=== PATIENT | female | born 1935 | race Caucasian/White ===

== ENCOUNTER 2020-03-11 23:01 | Emergency (ER) | payer MEDICARE, BC, SELFPAY ==
[2020-03-11 23:00] VITALS: BP 153/82; PULSE 106; RESP 18; TEMP 36.6; O2SAT 97
--- NOTE | 2020-03-12 02:47 | ED.FALL ---
HPI - Fall General Chief Complaint: Fall Stated Complaint: Ground Level Fall Time Seen by Provider: 03/12/20 02:35 History of Present Illness HPI Narrative: Patient presents via EMS for scalp lacerations. She was walking in the beck on carpet when she tumbled and hit her head against the hinge on the linen closet door. She is fallen frequently recently, mostly with just bruises. She wears a fall necklace. She has grab bars in the bathroom but not the hallway. She has scattered bruises. She had no loss of consciousness. Blood had been cleaned up from the left side of the head, but the laceration on the right side had not been seen. Not been sick in the last couple weeks. Is been very careful of the COVID precautions. complaint: fall Onset (ago): hour(s) Fall from: standing Fall witnessed: no Place fall occurred: home Loss of consciousness: none Symptoms prior to fall: none Context: tripped/slipped Location of injury: head Related Data Home Medications Medication Instructions Recorded Confirmed alprazolam 0.5 mg tablet 0.5 mg PO TID PRN 08/30/19 aspirin 81 mg tablet,delayed 81 mg PO DAILY 08/30/19 release celecoxib 200 mg capsule 200 mg PO BID 08/30/19 cholecalciferol (vitamin D3) 1,250 50,000 unit PO .COMPLEX 08/30/19 mcg (50,000 unit) capsule losartan 50 mg tablet 50 mg PO DAILY 08/30/19 pioglitazone 15 mg tablet 15 mg PO DAILY 08/30/19 rosuvastatin 10 mg tablet 10 mg PO DAILY 08/30/19 Allergies Allergy/AdvReac Type Severity Reaction Status Date / Time codeine Allergy Unknown DIZZY Verified 10/29/19 15:10 Penicillins Allergy Unknown RASH Verified 10/29/19 15:10 tramadol Allergy Unknown NAUSEA AND Verified 10/29/19 15:10 DIZZY Review of Systems Review of Systems: Narrative: CONSTITUTIONAL: Denies fever, chills, or sweats. EYES: Denies visual changes, redness, or discharge. ENT: Denies rhinorrhea, congestion, sore throat, or otalgia. CARDIOVASCULAR: Denies chest pain, palpitations, or edema. RESPIRATORY: Denies cough or dyspnea. GASTROINTESTINAL: Denies abdominal pain, nausea, vomiting, or diarrhea. GENITOURINARY: Denies dysuria or hematuria. SKIN: Denies rash or itching. MUSCULOSKELETAL: Denies back pain, joint pain, or myalgia. NEUROLOGIC: Denies numbness, or weakness. She has a small headache but wants to take her Tylenol at home. PSYCHIATRIC: Denies anxiety or depression. FOR[facility]LY [facility] Past Medical History Medical History (Updated 03/12/20 @ 02:50 by Pat Wilkes MD) Bronchitis Laceration of scalp Family History Family History Sibling Malignant neoplasm of prostate Mother Family history of malignant neoplasm of ovary Other Cerebrovascular accident Social History Social History Smoking status: Former smoker Second hand tobacco smoke exposure: No Smoking end date: 10/16/94 Alcohol intake: never Gender identity (if verbalized by the patient): Female Exam Narrative: Exam Narrative: GENERAL: Well-appearing, well-nourished, and in no acute distress. Blood on her head. 1 cm scalp plaque on the right, 2 cm scalp plaque on the left. Neither still bleeding. HEAD: Normocephalic, atraumatic. EYES: PERRLA and EOMI. ENT: Nares clear, no rhinorrhea or epistaxis. Mucous membranes moist. NECK: Supple. CHEST: Clear to auscultation. No respiratory distress. HEART: Regular rate and rhythm. No murmur heard. Normal peripheral pulses. ABDOMEN: Soft, nontender, nondistended, normal active bowel sounds. EXTREMITIES: Normal range of motion. No edema. SKIN: Warm, dry, no rash. NEURO: No focal deficits. Alert and oriented x3. PSYCH: Normal mood and affect. Course Vital Signs Vital signs: Vital Signs Temperature 97.8 F 03/11/20 23:00 Pulse Rate 106 H 03/11/20 23:00 Respiratory Rate 18 03/11/20 23:00 Blood Pressure 153/82 H 03/11/20 23:00 Pulse Oximetry 97
[2020-03-12 03:06] VITALS: BP 134/58; PULSE 80; RESP 17; TEMP 36.8; O2SAT 97
== END 2020-03-12 03:10 | disposition home or self-care (01) ==
PROVIDERS: Emergency Provider Emergency Medicine; PCP Internal Medicine
DX: S01.01XA Laceration without foreign body of scalp, initial encounter (principal); Z87.891 Personal history of nicotine dependence; W01.198A Fall on same level from slipping, tripping and stumbling with subsequent striking against other object, initial encounter; Z79.82 Long term (current) use of aspirin
CPT/HCPCS: 12001; 12002; 99282

== ENCOUNTER 2020-08-11 10:43 | Emergency (ER) | payer MEDICARE, BC, SELFPAY ==
[2020-08-11] VITALS (11 sets, daily range): BP systolic 130–149; BP diastolic 64–74; PULSE 69–83; RESP 11–26; O2SAT 84–93
--- NOTE | ~2020-08-11 | XR_ITS ---
EXAMINATION: XR chest 1V portable DATE: 08/11/2020 12:56 INDICATION: Sinus symptoms. TECHNIQUE: A single frontal view of the chest was obtained. COMPARISON: Chest 2 views 08/30/2019, chest CT 09/12/2010 FINDINGS: There is mild atelectasis at left lung base. There is mild scarring at the lung apices. No pleural effusion or pneumothorax. The heart size is normal. There is a prominent left paracardial fat pad. IMPRESSION: 1. Mild atelectasis at left lung base and mild scarring at the lung apices. Reviewed, dictated and finalized at location A.
--- NOTE | 2020-08-11 11:10 | ECG_ITS ---
Measurements Intervals [place] Rate: 73 P: 67 AL: 173 QRS: -4 QRSD: 73 T: 62 QT: 330 QTc: 365 Interpretive Statements SINUS RHYTHM RSR' IN V1 OR V2, CONSIDER RIGHT VENTRICULAR HYPERTROPHY OR RIGHT VCD LOW QRS VOLTAGE IN PRECORDIAL LEADS BORDERLINE R WAVE PROGRESSION, ANTERIOR LEADS BORDERLINE T WAVE ABNORMALITY- ANTEROLAT/HIGH LAT LEADS BASELINE ARTIFACT- I, II, AVR, AVL, AVF, V3, V6 BORDERLINE ECG Electronically Signed On 08-11-2020 12:10:31 CDT by Jeanmarie Dupont D.O.
[2020-08-11 11:30] LABS: Basophils Percent Auto 0.4 % (0.2-1.2); Hematocrit 41.9 % (37.0-47.0); Hemoglobin 13.3 g/dL (12.0-15.0); Immature Granulocyte Absolute 0.01 K/mm3 (0.00-0.031); Immature Granulocyte Percent A 0.4 % (0-0.5); Lymphocytes Absolute Auto 0.37 K/mm3 (0.9-3.2); Lymphocytes Percent Auto 14.5 % (18.3-44.2); Mean Corpuscular HGB Conc 31.7 g/dl (32-36); Mean Corpuscular Hemoglobin 29.9 pg (26-34); Mean Corpuscular Volume 94.2 fl (80-100); Mean Platelet Volume 10.8 fl (7.4-10.4); Monocytes Absolute Auto 0.3 K/mm3 (0.1-0.6); Monocytes Percent Auto 12.5 % (2.6-8.5); Neutrophils Absolute Auto 1.9 K/mm3 (1.3-6.7); Neutrophils Percent Auto 72.2 % (45.5-73.1); Platelet Count Result 114 k/mm3 (150-375); Red Blood Count 4.45 M/mm3 (4.2-5.4); Red Cell Distribution Width 14.1 % (11.5-14.5); White Blood Count 2.6 K/mm3 (4.5-10.0)
[2020-08-11 12:05] LABS: Anion Gap 5 mmol/L (8-16); Blood Urea Nitrogen 18 mg/dL (7-17); Calcium 8.5 mg/dL (8.4-10.2); Carbon Dioxide 32 mmol/L (22-30); Chloride 101 mmol/L (98-107); Estimated CRCL calculation 41 ml/min; Estimated Glomerular Filt Rate 48; Glucose 108 mg/dL (65-105); Potassium 4.5 mmol/L (3.4-5.0); Sodium 138 mmol/L (137-145)
[2020-08-11 12:10] LABS: Base Excess ABG 0.2 mEq/l (+/-2.0); Fractional Inspired Oxygen 21 %; HCO3 ABG 24.3 mEq/l (22.0-26.0); Oxygen Content ABG 17.7 %vol (16.0-22.0); Oxygen Saturation ABG 92.8 % (95.0-100.0); Oxyhemoglobin 91.7 % THb (90.0-100.0); PCO2 ABG 37.9 mmHg (35.0-45.0); PO2 ABG 63.3 mmHg (80.0-100.0); PO2 FiO2 Ratio Arterial Blood 3.01 %; Site Drawn LEFT RADIAL; Total Hemoglobin 13.7 g/dL (12.0-18.0); pH ABG 7.425 (7.350-7.450)
[2020-08-11 12:11] LABS: Device ROOM AIR; Modified Allen's Test Pass
--- NOTE | 2020-08-11 12:34 | PC.NURSE ---
1230 - Patient ambulated with assistance x1. Patient reports increased SOB with exertion and concern for getting around at home due to living alone. O2 saturation remains 92% with ambulation. informed.
--- NOTE | 2020-08-11 12:45 | PC.NURSE ---
1245 - X-ray at bedside. Patient asking if she needs another x-ray due to having one at today. Per MD x-ray at our facility is required. Disc not compatible with our computers. Patient updated.
--- NOTE | 2020-08-11 14:24 | ED.SOB ---
HPI - SOB/Dyspnea General Chief Complaint: Shortness of Breath/Dyspnea Stated Complaint: COVID + SOB Time Seen by Provider: 08/11/20 11:30 Source: patient Mode of arrival: ambulatory Limitations: no limitations History of Present Illness HPI Narrative: 84-year-old female Has COPD type 2 diabetes and hypertension Since last week has had fatigue and a cough and some diarrhea She was seen at a out of network urgent care earlier today and reports a Covid test done there was positive Her additional concerns are that her appetite has been poor and that she lives by herself MD elicited complaint: shortness of breath, cough and anxiety Related Data Home Medications Medication Instructions Recorded Confirmed alprazolam 0.5 mg tablet 0.5 mg PO TID PRN 08/30/19 aspirin 81 mg tablet,delayed 81 mg PO DAILY 08/30/19 release cholecalciferol (vitamin D3) 1,250 50,000 unit PO .COMPLEX 08/30/19 mcg (50,000 unit) capsule Allergies Allergy/AdvReac Type Severity Reaction Status Date / Time codeine Allergy Unknown DIZZY Verified 08/11/20 11:08 Penicillins Allergy Unknown RASH Verified 08/11/20 11:08 tramadol Allergy Unknown NAUSEA AND Verified 08/11/20 11:08 DIZZY Review of Systems Review of Systems: All systems reviewed & are unremarkable except as noted in HPI and below Constitutional: Constitutional: Reports chills, Reports fatigue, Denies fever(s), Denies headache(s) and Reports weakness Eyes: Eyes: Denies change in vision and Denies other visual disturbances ENT: Denies headache(s), Denies epistaxis, Denies nasal congestion and Denies sore throat Cardiovascular: Cardiovascular: Denies chest pain, Denies leg edema, Denies palpitations and Denies dyspnea Respiratory: Respiratory: Reports cough, Reports dyspnea and Denies wheezing Gastrointestinal: Gastrointestinal: Denies abdominal pain, Reports diarrhea, Denies nausea and Denies vomiting Genitourinary: Genitourinary: Denies hematuria, Denies urinary frequency and Denies dysuria Musculoskeletal: Musculoskeletal: Reports myalgias, Denies deformity, Denies arthralgias, Denies joint swelling, Denies muscle weakness and Denies numbness Integumentary/Breasts: Skin/Breast: Denies rash, Denies unusual bruising and Denies wounds Neurologic: Denies Abnormal speech present, Denies headache(s), Denies focal weakness, Denies numbness and Denies weakness Psychiatric: Psychiatric: Reports no additional psychiatric complaints Endocrine: Endocrine: Denies fatigue and Denies palpitations Hematologic/Lymphatic: Hematologic/Lymphatic: Denies easy bleeding and Denies easy bruising Allergic/Immunologic: Allergic/Immunologic: Denies wheezing PMFSH Past Medical History Medical History (Updated 08/11/20 @ 14:39 by Antony Fonseca MD) Bronchitis Laceration of scalp Family History Family History Sibling Malignant neoplasm of prostate Mother Family history of malignant neoplasm of ovary Other Cerebrovascular accident Social History Social History Smoking status: Former smoker Second hand tobacco smoke exposure: No Smoking end date: 10/16/94 Alcohol intake: never Gender identity (if verbalized by the patient): Female Exam Const: General: no acute distress, well developed and awake Nutritional Appearance: well nourished Orientation/consciousness: patient oriented x3 (alert) Limitations: no limitations HENMT: Head: normocephalic and atraumatic Ears: external ears normal General nose exam: No nasal discharge present and no epistaxis Face and sinus: face symmetric Eyes: Conjunctivae: conjunctivae normal Sclera: sclerae normal EOM: EOMs intact bilaterally Neck: Neck: normal visual inspection, supple and no JVD Chest: Chest palpation & inspection: deferred Resp: Effort & Inspection: normal respiratory effort Auscultation: clear to auscul
== END 2020-08-11 15:24 ==
PROVIDERS: Emergency Provider Emergency Medicine; PCP Internal Medicine
DX: U07.1 COVID-19 (principal); J44.9 Chronic obstructive pulmonary disease, unspecified; E11.9 Type 2 diabetes mellitus without complications; I10 Essential (primary) hypertension; Z79.82 Long term (current) use of aspirin; R94.31 Abnormal electrocardiogram [ECG] [EKG]
CPT/HCPCS: 36415; 36600; 71045; 80048; 82805; 85025; 93005; 99284

== ENCOUNTER → 2021-01-19 15:20 | Outpatient (CLI) | payer MEDICARE, BC, SELFPAY ==
--- NOTE | ~2021-01-19 | XR_ITS ---
EXAMINATION: XR chest 2V DATE: 01/19/2021 16:00 INDICATION: Shortness of breath TECHNIQUE: PA and lateral views of the chest are obtained. COMPARISON: 08/11/2020 FINDINGS: The lungs are free of acute opacities. There is chronic atelectasis of the left lung base a nd a prominent left pericardial fat pad. There is no pleural effusion or pneumothorax. The cardiomedi astinal silhouette is normal. Thoracic dextroscoliosis is noted. 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 IMPRESSION: 1. No acute cardiopulmonary abnormality. Reviewed, dictated and finalized at location A.
== END ==
PROVIDERS: PCP Internal Medicine; Visit Provider Internal Medicine
DX: R06.02 Shortness of breath (principal); M19.012 Primary osteoarthritis, left shoulder; M19.011 Primary osteoarthritis, right shoulder
CPT/HCPCS: 71046

== ENCOUNTER → 2021-03-04 14:09 | Outpatient (CLI) | payer MEDICARE, BC, SELFPAY ==
--- NOTE | ~2021-03-04 | US_ITS ---
EXAMINATION: US renal BI DATE: 03/04/2021 14:39 INDICATION: Abnormal renal function TECHNIQUE: Multiple grayscale and Doppler ultrasound images of the kidneys were obtained. COMPARISON: None. FINDINGS: The right kidney measures 8.8 x 4.5 x 4.4 cm. The left kidney measures 8.4 x 4.3 x 3.6 cm. The kidneys demonstrate normal parenchymal echogenicity. There is mild left hydronephrosis. The bladd er is normal. IMPRESSION: 1. Mild left hydronephrosis. Reviewed, dictated and finalized at location A.
== END ==
PROVIDERS: PCP Internal Medicine; Visit Provider Internal Medicine Nephrology
DX: R94.4 Abnormal results of kidney function studies (principal); N13.30 Unspecified hydronephrosis
CPT/HCPCS: 76775

== ENCOUNTER → 2022-05-11 13:49 | Outpatient (CLI) | payer MEDICARE, BC, SELFPAY ==
--- NOTE | ~2022-05-11 | CT_ITS ---
EXAMINATION: CT abdomen pelvis wo con DATE: 05/11/2022 14:15 INDICATION: Abdominal pain TECHNIQUE: Computed tomography (CT) of the abdomen and pelvis was performed without intravenous contr ast. The dose-length product (DLP) was 940.54 mGy-cm. Automated exposure control and iterative recons truction technique were employed. COMPARISON: None FINDINGS: The lung bases are clear. The heart size is normal. The gallbladder is surgically absent. T he liver, spleen, pancreas, and adrenal glands are normal. There is a 1.7 cm cyst of left kidney. The re is a 6 mm hemorrhagic cyst of the right kidney. There is calcified atherosclerosis of the aorta an d many of the other arteries. Colonic diverticulosis is present. There are multiple large diverticula of the sigmoid colon containing fecal material. There is subtle fat stranding near the rectosigmoid colon. There are changes of left total hip arthroplasty. There is moderate osteoarthritis of the righ t hip. The appendix is normal. There are chronic compression fractures of the T11 and L1 vertebral avsiliy dies. IMPRESSION: 1. Colonic diverticulosis with mild fat stranding adjacent to the rectosigmoid colon, possibly reflec ting uncomplicated diverticulitis. Reviewed, dictated and finalized at location B. IMPRESSION: 1. Colonic diverticulosis with mild fat stranding adjacent to the rectosigmoid colon, possibly reflecting uncomplicated diverticulitis.
== END ==
PROVIDERS: PCP Internal Medicine; Visit Provider Internal Medicine
DX: R10.9 Unspecified abdominal pain (principal); K57.30 Diverticulosis of large intestine without perforation or abscess without bleeding
CPT/HCPCS: 74176

== ENCOUNTER 2022-07-04 09:24 | Outpatient (CLI) | payer MEDICARE, BC, SELFPAY ==
--- NOTE | ~2022-07-04 | XR_ITS ---
EXAMINATION: UGI AIR CONTRAST W/ ESOPHAGRAM DATE: 12/28/07 09:43:00 INDICATION: Nausea with weight loss TECHNIQUE: Thick and thin barium contrast with and without gas effervescent crystals were administere d orally. Fluoroscopic images of the esophagus, stomach, and proximal duodenum were obtained in vari ous projections. The hypopharynx was also imaged. Thereafter, overhead images of the thoracic esophag us and abdomen were performed. FINDINGS: CT dated 05/11/2022 The esophagus is normal in caliber, without mucosal lesions or strictures. There is normal esophagea l peristalsis. There is no hiatal hernia. The hypopharynx is normal. 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 There are cholecystectomy clips. The gastric folds are normal. IMPRESSION: 1. Duodenal diverticulum. Otherwise, unremarkable esophagus/upper GI tract. Reviewed, dictated and finalized at location A.
== END 2022-07-04 09:25 | disposition home or self-care (01) ==
PROVIDERS: PCP Internal Medicine; Visit Provider Internal Medicine
DX: R11.0 Nausea (principal); K57.10 Diverticulosis of small intestine without perforation or abscess without bleeding
CPT/HCPCS: 74246

== ENCOUNTER 2023-04-18 11:45 | Emergency (ER) | payer MEDICARE, BC, SELFPAY ==
--- NOTE | ~2023-04-18 | CT_ITS ---
Clinical Indication: Chest pain, abdominal pain CT Scan of the Chest, Abdomen, and Pelvis with Contrast: Technique: Contiguous sections were acquired throughout the chest, abdomen, and pelvis after intraven ous administration of 100 cc of Omnipaque 350. Dose reduction technique was used on this scan by asher lane automated exposure control and iterative reconstruction technique. The dose-length product (DL P) was 1636.69 mGy-cm. COMPARISON: 05/11/2022 Findings: There is no evidence of any significant mediastinal, hilar or axillary lymphadenopathy. Atherosclerot ic calcifications of the aorta and coronary arteries are present. No aortic aneurysm or dissection. N o central pulmonary embolus.. There is no evidence of pleural or pericardial effusion. The lungs are clear. No pulmonary nodules or infiltrates are noted. Mild emphysema noted. Mild biliary dilatation may be related to prior cholecystectomy. The spleen, pancreas, adrenals and k idneys are within normal limits. There are atherosclerotic calcifications of the aorta. No lymphaden opathy. There is mild wall thickening of the distal sigmoid colon with underlying diverticulosis. No inflamma tory change, abscess, or free air evident. Urinary bladder is unremarkable. No adnexal mass evident. No ascites. There are minimally displaced fractures of the right fourth, fifth, sixth, and seventh ribs. Impression: Minimally displaced fractures the right fourth, fifth, sixth, and seventh ribs. Mild emphysema. Mild wall thickening of the distal sigmoid: Is likely related to muscular hypertrophy due to underlyi ng diverticulosis. No acute inflammatory change seen. Neoplasm felt to be unlikely, though difficult to completely excluded. Mild biliary dilatation is presumably related to prior cholecystectomy. Reviewed, dictated and finalized at [facility]. Impression: Minimally displaced fractures the right fourth, fifth, sixth, and seventh ribs. Mild emphysema. Mild wall thickening of the distal sigmoid: Is likely related to muscular hyper trophy due to underlying diverticulosis. No acute inflammatory change seen. Willy plasm felt to be unlikely, though difficult to completely excluded. Mild biliary dilatation is presumably related to prior cholecystectomy.
[2023-04-18 11:49] VITALS: BP 149/58; PULSE 72; RESP 20; TEMP 36.6; O2SAT 97
--- NOTE | 2023-04-18 12:15 | ED.FALL ---
HPI - Fall General Chief Complaint: Fall Stated Complaint: Fall- R rib pain Time Seen by Provider: 04/18/23 12:11 Source: patient History of Present Illness HPI Narrative: 87 years old white female came to the emergency room by private car from home with her son complaining of right lower ribs pain started 7 days ago after tripping and falling and the grocery store cart landed on her right lower ribs. Patient did not have any symptoms at that time, symptoms started 1 day later. She denies any head injury or any other injuries. Patient on aspirin, denies anticoagulant medication Related Data Home Medications Medication Instructions Recorded Confirmed aspirin 81 mg tablet,delayed 81 mg PO DAILY 08/30/19 01/26/23 release (Lo-Dose Aspirin) cholecalciferol (vitamin D3) 25 25 mcg PO DAILY 01/26/23 01/26/23 mcg (1,000 unit) capsule Allergies Allergy/AdvReac Type Severity Reaction Status Date / Time codeine Allergy Mild DIZZY Verified 04/18/23 11:47 Penicillins Allergy Mild RASH Verified 04/18/23 11:47 tramadol Allergy Mild NAUSEA AND Verified 04/18/23 11:47 DIZZY Review of Systems Review of Systems: All systems reviewed & are unremarkable except as noted in HPI and below PMFSH Past Medical History Medical History BPPV (benign paroxysmal positional vertigo) Bronchitis Gustatory rhinitis Laceration of scalp Left knee DJD Postoperative anemia Right knee DJD Surgical History Surgical History Status post total hip replacement, bilateral Family History Family History Sibling Malignant neoplasm of prostate Mother Family history of malignant neoplasm of ovary Father Heart disease Hypertension Other Cerebrovascular accident Social History Social History Smoking packs per day: 3 Smoking cigarettes per day: 60.0 Years smoked: 40 Smoking pack-years: 120.00 Smoking status: Former smoker Second hand tobacco smoke exposure: No Smoking end date: 10/30/94 Alcohol intake: never Substance use: current Substance use type: does not use Lack of Transportation: No Lack of Food: Never True Current Housing: I Have Housing Concerned About Future Housing: No Difficulty Paying Gas/Electric Bills: No Difficulty Paying for Meds: No Currently Unemployed: No Education: High School Diploma/GED Difficulty w/ Childcare or Family Care: No Living arrangements: with family Occupation/Education: retired Gender identity (if verbalized by the patient): Female Exam Narrative: General appearance: Well-developed, well-nourished Skin: Normal color Head: Normocephalic, nontraumatic Eyes: Clear conjunctiva ENT: Oropharynx normal, ears normal, nose normal Neck: Supple, nontender Chest and respiratory: Airway patent, no respiratory distress, no accessory muscle use right lower ribs tenderness, no bruises Heart: Regular rate/rhythm Abdomen: Soft, right upper quadrant tenderness and bruises, no organomegaly, quiet bowel sounds Vascular: Normal peripheral pulses, normal capillary refill. Musculoskeletal: Normal range of motion, nontender back Neurologic: Alert and oriented ?3, READING INTERVENTION TEACHER is normal as tested, no gross motor deficit Course Vital Signs Vital signs: Vital Signs Temperature 36.6 C 04/18/23 11:49 Pulse Rate 72 04/18/23 11:49 Respiratory Rate 20 04/18/23 11:49 Blood Pressure 149/58 H 04/18/23 11:49 Pulse Oximetry 97 04/18/23 11:49 Oxygen Delivery Room Air 0
[2023-04-18 12:21] VITALS: PULSE 68; RESP 20; O2SAT 96
[2023-04-18 12:50] LABS: Basophils Percent Auto 0.4 % (0.2-1.2); Eosinophils Absolute Auto 0.1 K/mm3 (0-0.3); Eosinophils Percent Auto 1.3 % (0-4.4); Hematocrit 40.9 % (37.0-47.0); Hemoglobin 12.9 g/dL (12.0-15.0); Immature Granulocyte Absolute 0.01 K/mm3 (0.00-0.031); Immature Granulocyte Percent A 0.2 % (0-0.5); Lymphocytes Absolute Auto 0.55 K/mm3 (0.9-3.2); Mean Corpuscular HGB Conc 31.5 g/dl (32-36); Mean Corpuscular Hemoglobin 29.9 pg (26-34); Mean Corpuscular Volume 94.9 fl (80-100); Mean Platelet Volume 10.6 fl (7.4-10.4); Monocytes Absolute Auto 0.5 K/mm3 (0.1-0.6); Monocytes Percent Auto 11.1 % (2.6-8.5); Neutrophils Absolute Auto 3.4 K/mm3 (1.3-6.7); Platelet Count Result 171 k/mm3 (150-375); Red Blood Count 4.31 M/mm3 (4.2-5.4); Red Cell Distribution Width 14.3 % (11.5-14.5); White Blood Count 4.6 K/mm3 (4.5-10.0)
[2023-04-18 13:36] VITALS: PULSE 66; RESP 16
[2023-04-18 13:55] LABS: Appearance Urine Clear (Clear); Bilirubin Urine 1+ (Negative); Blood Urine Negative (Negative); Color Urine Yellow (Yellow); Glucose Urine UA Negative (Negative); Ketones Urine Trace mg/dL (Negative); Leukocyte Esterase Ur 1+ LEU/UL (Negative); Nitrate Urine Negative (Negative); Protein Urine Negative (Negative)
[2023-04-18 13:56] LABS: Add Urine Microscopic? YES; Squamous Epithelial Cell Urine Many /hpf (Few); WBC Urine >75 /hpf
[2023-04-18 13:57] LABS: Bacteria Urine 1+ /hpf
[2023-04-18 13:59] LABS: Alanine Aminotransferase 20 U/L (6-35); Albumin Level 4.1 g/dL (3.5-5.1); Alkaline Phosphatase 85 U/L (38-126); Anion Gap 3 mmol/L (8-16); Aspartate Amino Transferase 30 U/L (14-36); Bilirubin,Total 0.6 mg/dL (0.2-1.3); Blood Urea Nitrogen 23 mg/dL (7-17); Calcium 9.3 mg/dL (8.4-10.2); Carbon Dioxide 31 mmol/L (22-30); Chloride 101 mmol/L (98-107); Estimated CRCL calculation 36 ml/min; Estimated Glomerular Filt Rate 47; Glucose 117 mg/dL (65-110); Lipase 32 U/L (23-300); Potassium 4.6 mmol/L (3.4-5.0); Sodium 135 mmol/L (137-145)
[2023-04-18 16:01] VITALS: BP 153/66; PULSE 67; O2SAT 94
[2023-04-18] MEDS: ACETAMINOPHEN 500 MG TABLET 1000 MG PO (16:08)
[2023-04-18 16:31] VITALS: BP 153/66; PULSE 67; RESP 14; O2SAT 94
== END 2023-04-18 16:32 | disposition home or self-care (01) ==
PROVIDERS: Emergency Provider Emergency Medicine; PCP Family Medicine
DX: S22.41XA Multiple fractures of ribs, right side, initial encounter for closed fracture (principal); N39.0 Urinary tract infection, site not specified; M17.0 Bilateral primary osteoarthritis of knee; Z96.643 Presence of artificial hip joint, bilateral; Z87.891 Personal history of nicotine dependence; J43.9 Emphysema, unspecified; Z79.82 Long term (current) use of aspirin; W01.0XXA Fall on same level from slipping, tripping and stumbling without subsequent striking against object, initial encounter; W22.8XXA Striking against or struck by other objects, initial encounter
CPT/HCPCS: 36415; 71260; 74177; 80053; 81001; 83690; 85025; 87086; 96374; 99284; A9270; J0696; Q9967

== ENCOUNTER 2025-05-28 12:14 | Emergency (ER) | payer MEDICARE, BC, SELFPAY ==
--- NOTE | ~2025-05-28 | XR_ITS ---
EXAMINATION: XR chest 2V 05/28/2025 14:14 INDICATION: Weakness and nausea PROCEDURE: 2 view chest COMPARISON: 08/11/2020 FINDINGS: The lungs are clear. The cardiomediastinal silhouette is within normal limits. There are no pleural effusions. There is no pneumothorax suspected. There is scoliosis. There is advanced deg enerative changes of the glenohumeral joints. IMPRESSION: 1: NO ACUTE CARDIOPULMONARY DISEASE. Reviewed, dictated and finalized at location A.
--- OUTSIDE RECORDS SUMMARY | 2025-05-28 12:16 | XMS_ITS | Clinical Summary ---
Author Organization [facility] Address [address] [place] [address] Phone Care Team Providers Care Lidar Technician Name Role Phone Otoniel iGbson DO Primary Care Provider [phone] Allergies Active Allergy Reactions Criticality Noted Date Comments Codeine Dizziness 02/02/2021 Penicillins Rash Low 02/02/2021 Tramadol Dizziness,nausea 02/02/2021 Medications Diclofenac Sodium 1 % gel APPLY 2 GRAMS 4 TIMES DAILY TO SINGLE KNEE, ANKLE, FOOT FOR FOOT INCLUDES SOLE/TOES/TOP OF FOOT 11/23/2020 Active losartan (COZAAR) 50 MG tablet 11/23/2020 Active ondansetron (ZOFRAN) 4 MG tablet 01/20/2021 Active pioglitazone (ACTOS) 15 MG tablet 10/28/2020 Active rosuvastatin (CRESTOR) 10 MG tablet 10/28/2020 Active Active Problems Problem Noted Date Diagnosed Date Hypertension Benign paroxysmal positional vertigo Osteoarthritis Anxiety Diabetes mellitus Mixed hyperlipidemia Chronic obstructive pulmonary disease Family History Medical History Relation Comments Ovarian cancer Mother Relation Status Comments Mother Social History Tobacco Use Types Packs/Day Years Used Date Smoking Tobacco: Former Smokeless Tobacco: Never Alcohol Use Standard Drinks/Week Comments Never 0 (1 standard drink = 0.6 oz pur e alcohol) AUDIT-C Answer Date Recorded Q1: How often do you have a drink containing alc ohol? Never 01/25/2021 Q2: How many drinks containi ng alcohol do you have on a typical day when you are drinking? Not asked 01/25/2021 Q3: How often do you have six or more drinks on one occasion? Never 01/25/2021 Comments Unknown Sex and Gender Information Value Date Recorded Sex Assigned at Not on file Legal Sex Female 1:51 PM [facility] Gender Identity Not on file Sexual Orientation Not on file Last Filed Vital Signs Vital Sign Reading Time Taken Comments Blood Pressure 126/72 03/10/2021 2:37 PM CDT Pulse - - Temperature 36.8 C (98.2 F) 03/10/2021 2:37 PM CDT Respiratory Rate 18 03/10/2021 2:37 PM CDT Oxygen Saturation - - Inhaled Oxygen Concentration - - Weight 103 kg (227 lb) 03/10/2021 2:37 PM CDT Height 162.6 cm (5' 4) 03/10/2021 2:37 PM CDT Body Mass Index 38.96 03/10/2021 2:37 PM CDT Plan of Treatment Health Maintenance Due Date Last Done Comments Pneumococcal PPSV23/PCV13 65 + Years / Low and Medium Risk (1 of 2 - PCV) 1987 Influenza Vaccine (#1) 2025 Insurance MEDICARE [facility] Care Teams Lidar Technician Relationship Specialty Start Date End Date Otoniel Gibson DO [address] [place] [address] PCP - General Internal Medicine 12/10/20
--- OUTSIDE RECORDS SUMMARY | 2025-05-28 12:16 | XMS_ITS | Clinical Summary ---
Author Organization [facility] Address [facility] [place] [address] Care Team Providers Care Multimedia Instructional Designer Name Role Phone Unavailable Primary Care Provider Unavailabl e Social History Tobacco Use Types Packs/Day Years Used Date Smoking Tobacco: Never Assessed Comments Unknown Sex and Gender Information Value Date Recorded Sex Assigned at Not on file Legal Sex Female 6:06 PM CDT Gender Identity Not on file Sexual Orientation Not on file Plan of Treatment Health Maintenance Due Date Last Done Comments DTaP, Tdap and Td Vaccines ( 1 - Tdap) 1954 Pneumococcal Vaccine: 50+ Ye ars (1 of 1 - PCV) 1987 Zoster Vaccines (1 of 2) 1987 RSV Immunization or 60+ Years (1 - 1-dose 75+ series) 2012 COVID-19 Vaccine ( - 2023-2 5 season) 2024 Meningococcal B Vaccine Aged Out No l onger eligible based on patient's age to complete this topic Meningococcal Vaccine Aged Out No cindy carley eligible based on patient's age to complete this topic RSV Immunizations Under 20 Months Aged Out No longer eligible based on patient's age to complete this topic
[2025-05-28 13:03] VITALS: BP 137/58; PULSE 68; RESP 12; TEMP 36.6; O2SAT 95
--- NOTE | 2025-05-28 13:07 | ECG_ITS ---
Test Date: 2025-05-28 13:13:10 Measurements Intervals [place] Rate: 67 P: 92 [place]: 187 QRS: -45 QRSD: 73 T: 76 QT: 369 QTc: 392 Interpretive Statements SINUS RHYTHM LEFT AXIS DEVIATION CONSIDER ANTEROSEPTAL INFARCT, AGE INDETERMINATE BORDERLINE ST-T WAVE ABNORMALITY- HIGH LATERAL LEADS BASELINE ARTIFACT- II, III, AVR, AVF, V6 ABNORMAL ECG No previous ECG available for comparison Electronically Signed On 05-28-2025 13:35:53 CDT by Jeanmarie Dupont D.O.
[2025-05-28 13:30] LABS: Hematocrit 40.1 % (37.0-47.0); Hemoglobin 12.5 g/dL (12.0-15.0); Immature Granulocyte Percent A 0.2 % (0-0.5); Lymphocytes Absolute Auto 0.70 K/mm3 (0.9-3.2); Mean Corpuscular HGB Conc 31.2 g/dl (32-36); Mean Corpuscular Hemoglobin 29.3 pg (26-34); Mean Corpuscular Volume 93.9 fl (80-100); Nucleated Red Blood Cells Absolute Auto 0.000 K/mm3 (0.0-0.012); Nucleated Red Blood Cells Perc 0.0 % (0.0-0.2); Platelet Count Result 195 k/mm3 (150-375); Red Blood Count 4.27 M/mm3 (4.2-5.4); White Blood Count 6.4 K/mm3 (4.5-10.0)
[2025-05-28 13:47] LABS: Add Urine Microscopic? NO; Appearance Urine Clear (Clear); Glucose Urine UA 3+ mg/dL (Negative); Leukocyte Esterase Ur Negative LEU/UL (Negative); Nitrate Urine Negative (Negative); Specific Grav Ur 1.031 (1.001-1.035)
--- OUTSIDE RECORDS SUMMARY | 2025-05-28 13:47 | XMS_ITS | Clinical Summary ---
Author Organization [facility] Address [address] [place] [address] Phone Care Team Providers Care Civil Celebrant Name Role Phone Otoniel Gibson DO Primary Care Provider [phone] Allergies Active Allergy Reactions Criticality Noted Date [...] on file Legal Sex Female 1:51 PM [facility] Gender Identity Not on file Sexual Orientation [...] 1987 Influenza Vaccine (#1) 2025 Insurance MEDICARE [facility] Care Teams Civil Celebrant Relationship Specialty Start Date End Date Otoniel Gibson DO [address] [place] [address] PCP - General Internal Medicine 12/10/20
--- OUTSIDE RECORDS SUMMARY | 2025-05-28 13:47 | XMS_ITS | Clinical Summary ---
Author Organization [facility] Address [facility] [place] [address] Care Team Providers Care Flight Control Specialist Name Role Phone Unavailable Primary Care Provider [...]
[2025-05-28 13:51] LABS: Alanine Aminotransferase 18 U/L (6-35); Albumin Level 3.9 g/dL (3.5-5.1); Alkaline Phosphatase 65 U/L (38-126); Anion Gap 7 mmol/L (4-12); Aspartate Amino Transferase 25 U/L (14-36); Bilirubin,Total 0.4 mg/dL (0.2-1.3); Blood Urea Nitrogen 28 mg/dL (7-17); Calcium 9.2 mg/dL (8.4-10.2); Carbon Dioxide 27 mmol/L (22-30); Chloride 102 mmol/L (98-107); Estimated CRCL calculation 28 ml/min; Estimated Glomerular Filt Rate 39; Glucose 172 mg/dL (65-110); Potassium 4.5 mmol/L (3.4-5.0); Sodium 136 mmol/L (137-145); Total Protein 7.1 g/dL (6.3-8.2)
--- NOTE | 2025-05-28 14:24 | ED.GENADULT ---
HPI - General Adult General Chief complaint: Unspecified Stated complaint: flare up of EPI Time Seen by Provider: 05/28/25 13:33 History of Present Illness HPI narrative: This is a an 89-year-old female with history of exocrine pancreas insufficiency, COPD who presents ED for concerns for dehydration. Patient states that week ago she had a ?flare-up? of her EPI. She has been taking her enzymes as prescribed. Which he says that for the past few days, she has been having some shakiness and has been feeling weaker than normal. She has been able ambulate. She was talking to beautician today is that she may be dehydrated prompting her to come to the ED. Patient denies chest pain, shortness breath, abdominal pain, nausea, vomiting. She states she is having a fall with every void which is more than normal for her. Related Data Home Medications ?Medication ?Instructions ?Recorded ?Confirmed ?Last Taken ?Type aspirin 81 mg tablet,delayed 81 mg PO DAILY 08/30/19 05/13/25 Unknown History release (Lo-Dose Aspirin) cholecalciferol (vitamin D3) 25 25 mcg PO DAILY 01/26/23 05/13/25 Unknown History mcg (1,000 unit) capsule acetaminophen 650 mg 650 mg PO Q8H 10/26/23 05/13/25 Unknown History tablet,extended release (Arthritis Pain Relief (acetaminophen) ER) Allergies Allergy/AdvReac Type Severity Reaction Status Date / Time codeine Allergy Mild DIZZY Verified 05/13/25 13:19 Penicillins Allergy Mild RASH Verified 05/13/25 13:19 tramadol Allergy Mild NAUSEA AND Verified 05/13/25 13:19 DIZZY Review of Systems Review of Systems: Gen.: Denies fevers or chills Eyes: Denies eye pain or visual change ENT: Denies congestion Respiratory: Denies shortness of breath or cough CV: Denies chest pain or palpitations GI: Denies abdominal pain nausea, emesis denies burning, urgency, frequency or hematuria Musculoskeletal: Denies back pain or muscle pain Neuro: Denies numbness, tingling, weakness or focal weakness Skin: Denies rash Except as documented, all other systems reviewed and negative PMFSH Past Medical History Medical History Abscess Irregular bowel habits Exocrine pancreatic insufficiency Counseling regarding end of life decision making Change in bowel function Ribs, multiple fractures 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 BPPV (benign paroxysmal positional vertigo) Postoperative anemia Laceration of scalp Bronchitis Surgical History Surgical History Status post total hip replacement, bilateral Family History Family History Sibling Malignant neoplasm of prostate Mother Family history of malignant neoplasm of ovary Father Heart disease Hypertension Other Cerebrovascular accident Social History Social History Smoking packs per day: 3 Smoking cigarettes per day: 60.0 Years smoked: 40 Smoking pack-years: 120.00 Smoking status: Former smoker Second hand tobacco smoke exposure: No Smoking end date: 10/30/94 Alcohol intake: never Substance use: never Substance use type: does not use Do You Feel Safe in your Home?: Yes Lack of Transportation: No Lack of Food: Never True Current Housing: I Have Housing Concerned About Future Housing: No Difficulty Paying Gas/Electric Bills: No Difficulty Paying for Meds: No Currently Unemployed: No Education: High School Diploma/GED Difficulty w/ Childcare or Family Care: No Living arrangements: alone Occupation/Education: retired Additional occupation/education comments: Supervisor [employer] Gender identity (if verbalized by the patient): Female Exam Narrative: APPEARANCE: No acute distress, nontoxic, resting in bed EYES: EOMI HEENT: Normocephalic, atraumatic, mucous membranes mildly dry RESPIRATORY: No respiratory distress Clear to auscultation bilaterally with no rhonchi wheezing or rales. CARDIOVASCULAR: Regular rate and rhythm without murmurs rubs or gallops. ABDOMINAL: Soft, nontender, nondistended, no rebound or guarding MUSCULOSKELETAl: Moves all extremities. No clubbing, cyanosis or edema. NEURO: Awake and alert. Following commands, speech normal, no focal deficits SKIN:: Warm, dry. No rashes lesions or abrasions PSYCHIATRIC: Normal affect/mood, Course Vital Signs Vital signs: Vital Signs Temperature 98 F 05/28/25 13:03 Pulse Rate 68 05/28/25 13:03 Respiratory Rate 12 05/28/25 13:03 Blood Pressure 137/58 L 05/28/25 13:03 Pulse Oximetry 95 05/28/25 13:03 Oxygen Delivery Room Air 05/28/25 13:03 Temperature 98 F 05/28/25 13:03 Pulse Rate 62 05/28/25 15:56 Respiratory Rate 20 05/28/25 15:56 Blood Pressure 130/68 05/28/25 15:56 Pulse Oximetry 96 05/28/25 15:56 Oxygen Delivery Room Air 05/28/25 13:03 Medical Decision Making MDM Narrative Medical decision making narrative: A 89-year-old female presenting to the ED for fatigue. On initial evaluation, visual no acute distress, afebrile, hemodynamically stable. Her lungs were clear. Abdomen is soft nontender. Mucous membranes were mildly dry. Patient was given 1 L NS bolus. On re-evaluation, she was feeling significantly better. Labs without significant abnormalities. Creatinine was a touch high but this was better than her baseline. Patient was deemed appropriate for discharge at this time. He is advised follow-up with her utility system repairer regarding her pancreatic enzyme dosages. Patient and son were agreeable to this plan. Given strict return precautions. Differential Diagnosis Differential Diagnosis: electrolyte abnormality, UTI, CAP Vital Signs Vital Signs: Vital Signs Temperature 98 F 05/28/25 13:03 Pulse Rate 68 05/28/25 13:03 Respiratory Rate 12 05/28/25 13:03 Blood Pressure 137/58 L 05/28/25 13:03 Pulse Oximetry 95 05/28/25 13:03 Oxygen Delivery Room Air 05/28/25 13:03 Temperature 98 F 05/28/25 13:03 Pulse Rate 62 05/28/25 15:56 Respiratory Rate 20 05/28/25 15:56 Blood Pressure 130/68 05/28/25 15:56 Pulse Oximetry 96 05/28/25 15:56 Oxygen Delivery Room Air 05/28/25 13:03 Lab Data Lab results reviewed: Yes I reviewed the patient's lab results. 05/28/25 13:23 05/28/25 13:23 Labs: Lab Results 05/28/25 05/28/25 Range/Units 13:23 13:38 WBC 6.4 (4.5-10.0) K/mm3 RBC 4.27 (4.2-5.4) M/mm3 Hgb 12.5 (12.0-15.0) g/dL Hct 40.1 (37.0-47.0) % MCV 93.9 (80-100) fl MCH 29.3 (26-34) pg MCHC 31.2 L (32-36) g/dl RDW 13.4 (11.5-14.5) % Plt Count 195 (150-375) k/mm3 MPV 10.5 H (7.4-10.4) fl Immature Gran % (Auto) 0.2 (0-0.5) % Neut % (Auto) 80.0 H (45.5-73.1) % Lymph % (Auto) 10.9 L (18.3-44.2) % [place] % (Auto) 7.8 (2.6-8.5) % Eos % (Auto) 0.6 (0-4.4) % Baso % (Auto) 0.5 (0.2-1.2) % Lymph # (Auto) 0.70 L (0.9-3.2) K/mm3 [place] # (Auto) 0.5 (0.1-0.6) K/mm3 Eos # (Auto) 0.0 (0-0.3) K/mm3 Baso # (Auto) 0.0 (0.0-0.1) K/mm3 Abs Immat Gran (auto) 0.01 (0.00-0.031) K/mm3 Absolute Neuts (auto) 5.2 (1.3-6.7) K/mm3 Absolute Nucleated RBC 0.000 (0.0-0.012) K/mm3 Nucleated RBC % 0.0 (0.0-0.2) % Sodium 136 L (137-145) mmol/L Potassium 4.5 (3.4-5.0) mmol/L Chloride 102 (98-107) mmol/L Carbon Dioxide 27 (22-30) mmol/L Anion Gap 7 (4-12) mmol/L BUN 28 H (7-17) mg/dL Creatinine 1.29 H (0.7-1.0) mg/dL Estim Creat Clear Calc 28 ml/min Estimated GFR 39 L (59 - ) Glucose 172 H (65-110) mg/dL Calcium 9.2 (8.4-10.2) mg/dL Total Bilirubin 0.4 (0.2-1.3) mg/dL AST 25 (14-36) U/L ALT 18 (6-35) U/L Alkaline Phosphatase 65 (38-126) U/L Total Protein 7.1 (6.3-8.2) g/dL Albumin 3.9 (3.5-5.1) g/dL Urine Color Yellow (Yellow) Urine Appearance Clear (Clear) Urine pH 5.0 (5.0-9.0) Ur Specific [place] 1.031 (1.001-1.035) Urine Protein Negative (Negative) mg/dL Urine Glucose (UA) 3+ H (Negative) mg/dL Urine Ketones Trace H (Negative) mg/dL Ur Blood (Man) Negative (Negative) Urine Nitrate Negative (Negative) Urine Bilirubin Negative (Negative) Urine Urobilinogen 1.0 (<2.0) mg/dL Leukocyte Esterase Rfl Negative (Negative) CARRIE/UL Imaging Data Radiologist's impression: Impressions Chest X-Ray 05/28/25 14:20 IMPRESSION: 1: NO ACUTE CARDIOPULMONARY DISEASE. Discharge Plan Discharge Clinical Impression: Enteritis due to specified virus, Acute dehydration, Exocrine pancreatic insufficiency Patient Disposition: Home Condition: Stable Instructions: Antibiotic Form, Dehydration (ED), Enteritis (ED) Additional Instructions: follow up with your Mapping Engineer to discuss your zepbound dosing if needed Patient Language: Japanese Prescriptions: No Action acetaminophen [Arthritis Pain Relief (acetam)] 650 mg tablet extended release 650 mg PO Q8H alprazolam 0.5 mg tablet 0.5 mg PO BID PRN (Reason: anxiety) Qty: 60 0RF Zenpep 40,000-126,000- 168,000 unit capsule,delayed release(DR/EC) 2 cap PO TID Qty: 360 2RF Rx Instructions: administer with meals and/or snacks sertraline 100 mg tablet 100 mg PO DAILY Qty: 90 3RF Jardiance 10 mg tablet 10 mg PO DAILY Qty: 90 3RF cholecalciferol (vitamin D3) 25 mcg (1,000 unit) capsule 25 mcg PO DAILY aspirin [Lo-Dose Aspirin] 81 mg tablet,delayed release (DR/EC) 81 mg PO DAILY pantoprazole 20 mg tablet,delayed release (DR/EC) 40 mg PO QAM Qty: 60 2RF diclofenac sodium 1 % gel 4 g topical QID Qty: 4 2RF Rx Instructions: apply to single knee, ankle, foot; for foot includes sole/toes/top of foot losartan 50 mg tablet 50 mg PO BID Qty: 180 1RF rosuvastatin 10 mg tablet 10 mg PO DAILY Qty: 90 1RF Follow-up/Referrals: Hector Lemon MD [Primary Care Provider] -
[2025-05-28] MEDS: SODIUM CHLORIDE 0.9% IV 1,000 ML 999 ML IV CONT (14:45)
[2025-05-28 15:56] VITALS: BP 130/68; PULSE 62; RESP 20; O2SAT 96
== END 2025-05-28 17:02 | disposition home or self-care (01) ==
PROVIDERS: Emergency Medicine; Emergency Provider Student in an Organized Health Care Education/Training Program; PCP Family Medicine
DX: A08.39 Other viral enteritis (principal); E86.0 Dehydration; K86.81 Exocrine pancreatic insufficiency; J44.9 Chronic obstructive pulmonary disease, unspecified; Z96.643 Presence of artificial hip joint, bilateral; Z87.891 Personal history of nicotine dependence
CPT/HCPCS: 36415; 71046; 80053; 81003; 85025; 93005; 96360; 99283; J7030